=== PATIENT | male | born 1970 | race Caucasian/White ===

== ENCOUNTER 2017-12-26 16:04 | Inpatient (IN) | payer MEDICAID, OTHER ==
[~2017-12-26] VITALS: Ht 200.7 cm; Wt 79.1 kg
[2017-12-26] MEDS ORDERED: SODIUM CHLORIDE 0.9% 1,000 ML IV ONE ×2 (16:12→20:09)
[2017-12-26] MEDS ORDERED: PLEASE ENTER HEIGHT AND WEIGHT MC SCH (16:30)
[2017-12-26] MEDS ORDERED: PLEASE ENTER ALLERGIES MC SCH (16:30)
[2017-12-26 16:37] LABS: MEAN CORPUSCULAR HEMOGLOBIN 32.5 pg (27.5-34.5); MEAN CORPUSCULAR VOLUME 95.4 fL (81-97); MEAN PLATELET VOLUME 6.2 fL (7.4-10.4); PLATELET COUNT 580 x10^3/uL (130-400); RED BLOOD COUNT 3.73 x10^6/uL (4.38-5.82); RED CELL DISTRIBUTION WIDTH 19.3 % (9.4-14.8)
[2017-12-26 16:46] LABS: ALANINE AMINOTRANSFERASE 91 U/L (12-78); ALBUMIN 2.2 g/dL (3.4-5.0); ANION GAP 15 mmol/L (5-15); CALCIUM 7.2 mg/dL (8.5-10.1); CHLORIDE 101 mmol/L (98-107); SALICYLATE LEVEL 4.7 mg/dL (2.8-20.0)
[2017-12-26 16:49] LABS: ALKALINE PHOSPHATASE 90 U/L (45-117); BILIRUBIN,TOTAL 0.2 mg/dL (0.2-1.0); TOTAL PROTEIN 6.7 g/dL (6.4-8.2)
[2017-12-26 16:51] LABS: ACETAMINOPHEN < 2 mcg/mL (10-30)
[2017-12-26] MEDS ORDERED: SODIUM CHLORIDE 0.9% 1,000ML IVBOLUS ONE (17:00)
[2017-12-26 17:23] LABS: MD YES
[2017-12-26 17:26] LABS: BAND#(MANUAL) 3.19 x10^3/uL; BANDS%(MANUAL) 24 % (0-7); LYMPH#(MANUAL) 1.46 x10^3/uL (1-3.4); LYMPHS% (MANUAL) 11 % (22-44); MONOS% (MANUAL) 9 % (2-9); SEG#(MANUAL) 7.45 x10^3/uL (1.8-6.8); SEGS% (MANUAL) 56 % (42-75)
[2017-12-26 17:27] LABS: ANISOCYTOSIS 1+; POLYCHROMASIA 1+
[2017-12-26 17:28] LABS: <PLATELET ESTIMATE> INCREASED; <PLT MORPHOLOGY> NORMAL PLT MORPH; TOXIC GRAN 1+
[2017-12-26] MEDS ORDERED: SODIUM CHLORIDE FLUSH 10ML SYR IVF ONE (18:00)
[2017-12-26] MEDS ORDERED: HALOPERIDOL 5 MG/ML IVPush PRN (20:30)
[2017-12-26] MEDS ORDERED: ONDANSETRON 2MG/ML, 2ML IVPush PRN (20:30)
[2017-12-26] MEDS ORDERED: PROMETHAZINE 12.5 MG SUPP PR PRN (20:30)
[2017-12-26] MEDS ORDERED: SODIUM CHLORIDE FLUSH 10ML SYR IVF PRN (20:30)
[2017-12-26] MEDS ORDERED: LORazepam 2 MG/ML, 1ML IV PRN ×4 (20:30)
[2017-12-26] MEDS ORDERED: DIPHENHYDRAMINE 50 MG/ML, 1ML IV PRN (20:30)
[2017-12-26] MEDS ORDERED: OMNIPAQUE 350 MG/ML, 100ML BOTTLE ONE (20:59)
[2017-12-26] MEDS ORDERED: NICOTINE 21 MG/24 HR PATCH.TD24 ONE (21:04)
[2017-12-26] MEDS ORDERED: ENOXAPARIN 40 MG/0.4 ML ONE (21:04)
[2017-12-26] MEDS: ENOXAPARIN 40 MG/0.4 ML SQ SCH (21:08)
[2017-12-26] MEDS: NICOTINE 21 MG/24 HR PATCH.TD24 TD SCH (21:08)
[2017-12-26] MEDS: LORazepam 2 MG/ML, 1ML IV PRN ×2 (22:13→23:36)
[2017-12-26 22:28] VITALS: BP 114/74
[2017-12-26] MEDS: D5%-0.9% NACL 1,000 ML IV SCH (23:18)
[2017-12-26] MEDS: POTASSIUM CHLORIDE 20 MEQ, MAGNESIUM SULFATE 2 GM, THIAMINE 100 MG, MVI ADULT 10 ML, FO... IV SCH (23:18)
[2017-12-27] MEDS: LORazepam 2 MG/ML, 1ML IV PRN ×6 (01:05→06:28)
[2017-12-27] MEDS: POTASSIUM CHLORIDE 20 MEQ, MAGNESIUM SULFATE 2 GM, THIAMINE 100 MG, MVI ADULT 10 ML, FO... IV SCH ×4 (01:08→15:49)
[2017-12-27 01:59] VITALS: BP 98/63
[2017-12-27] MEDS: D5%-0.9% NACL 1,000 ML IV SCH (04:09)
[2017-12-27 05:45] LABS: MEAN CORPUSCULAR HEMOGLOBIN 32.6 pg (27.5-34.5); MEAN CORPUSCULAR HGB CONC 33.7 g/dL (33.2-36.2); MEAN CORPUSCULAR VOLUME 96.6 fL (81-97); MEAN PLATELET VOLUME 6.4 fL (7.4-10.4); PLATELET COUNT 477 x10^3/uL (130-400); RED BLOOD COUNT 2.74 x10^6/uL (4.38-5.82); RED CELL DISTRIBUTION WIDTH 19.6 % (9.4-14.8)
[2017-12-27 05:49] LABS: CHLORIDE 104 mmol/L (98-107)
[2017-12-27 06:04] LABS: ALANINE AMINOTRANSFERASE 69 U/L (12-78); ALBUMIN 1.8 g/dL (3.4-5.0); ALKALINE PHOSPHATASE 68 U/L (45-117); ANION GAP 12 mmol/L (5-15); BILIRUBIN,TOTAL 0.3 mg/dL (0.2-1.0); CALCIUM 6.8 mg/dL (8.5-10.1); CREATININE 0.52 mg/dL (0.7-1.3); TOTAL PROTEIN 5.3 g/dL (6.4-8.2)
[2017-12-27 06:31] LABS: MD YES
[2017-12-27 06:32] LABS: BAND#(MANUAL) 0.83 x10^3/uL; BANDS%(MANUAL) 9 % (0-7); LYMPH#(MANUAL) 1.75 x10^3/uL (1-3.4); LYMPHS% (MANUAL) 19 % (22-44); MONOS#(MANUAL) 0.46 x10^3/uL (0.3-2.7); MONOS% (MANUAL) 5 % (2-9); SEG#(MANUAL) 6.16 x10^3/uL (1.8-6.8); SEGS% (MANUAL) 67 % (42-75)
[2017-12-27 06:33] LABS: <PLATELET ESTIMATE> ADEQUATE; <PLT MORPHOLOGY> NORMAL PLT MORPH; ANISOCYTOSIS 1+; POLYCHROMASIA 1+; TOXIC GRAN 1+
[2017-12-27] MEDS ORDERED: SODIUM PHOSPHATE 20 MMOL in SODIUM CHLORIDE 0.9% 500 ML IV ONE (08:00)
[2017-12-27 08:02] LABS: HCT (SEDRATE) 26.5 % (39.2-51.8)
[2017-12-27 08:10] LABS: % IRON SATURATION 14 % (20-55); IRON LEVEL 24 mcg/dL (65-175); TOTAL IRON BINDING CAPACITY 170 mcg/dL (250-450)
[2017-12-27 08:36] LABS: FOLATE LEVEL > 20.0 ng/mL (3.1-17.5)
[2017-12-27] MEDS: CHLORDIAZEPOXIDE 25 MG CAPSULE PO SCH ×4 (09:09→20:19)
[2017-12-27] MEDS: SODIUM CHLORIDE 0.9% 1,000 ML IV SCH (09:10)
[2017-12-27] MEDS: DIAZEPAM 5 MG/ML, 2ML IV SCH ×4 (09:12→20:17)
[2017-12-27 09:31] LABS: CRYPTOSPORIDIUM ANTIGEN Negative (Negative)
[2017-12-27 10:02] LABS: MICROSCOPIC INDICATED
[2017-12-27 10:05] LABS: AMPHETAMINE SCREEN, URINE Negative (Negative); BARBITURATE SCREEN, URINE Negative (Negative); BENZODIAZEPINE SCREEN, URINE Negative (Negative); CANNABINOID SCREEN, URINE Negative (Negative); COCAINE SCREEN, URINE Negative (Negative); METHADONE SCREEN, URINE Negative (Negative); OPIATE SCREEN, URINE Negative (Negative)
[2017-12-27 10:12] LABS: CULTURE INDICATED? NO
[2017-12-27 10:22] LABS: CLOSTRIDIUM DIFFICILE ANTIGEN POSITIVE; CLOSTRIDIUM DIFFICILE TOXIN NEGATIVE (Negative)
[2017-12-27] MEDS: METRONIDAZOLE PMX 500MG/100ML 100 ML IV SCH ×3 (10:49→23:24)
[2017-12-27] MEDS: CEFTRIAXONE PMX 1GM/50ML 50 ML IV SCH (10:50)
[2017-12-27] MEDS: ACETAMINOPHEN 325 MG TABLET PO PRN ×2 (11:36→15:44)
[2017-12-27] MEDS: VANCOMYCIN 50 MG/ML ORAL SUSP PO SCH ×2 (12:49→18:13)
[2017-12-27 16:45] LABS: CULTURE INDICATED? YES; MICROSCOPIC INDICATED
[2017-12-27] MEDS: ENOXAPARIN 40 MG/0.4 ML SQ SCH (20:17)
[2017-12-27] MEDS: NICOTINE 21 MG/24 HR PATCH.TD24 TD SCH (20:18)
[2017-12-28] MEDS: DIAZEPAM 5 MG/ML, 2ML IV SCH ×5 (00:57→16:46)
[2017-12-28] MEDS: VANCOMYCIN 50 MG/ML ORAL SUSP PO SCH ×4 (00:57→20:29)
[2017-12-28] MEDS: SODIUM CHLORIDE 0.9% 1,000 ML IV SCH ×3 (01:00→20:30)
[2017-12-28] MEDS: CHLORDIAZEPOXIDE 25 MG CAPSULE PO SCH ×4 (04:56→20:30)
[2017-12-28] MEDS: METRONIDAZOLE PMX 500MG/100ML 100 ML IV SCH ×4 (04:56→23:44)
[2017-12-28 08:31] LABS: MEAN CORPUSCULAR HEMOGLOBIN 32.2 pg (27.5-34.5); MEAN CORPUSCULAR HGB CONC 33.4 g/dL (33.2-36.2); MEAN CORPUSCULAR VOLUME 96.4 fL (81-97); MEAN PLATELET VOLUME 6.8 fL (7.4-10.4); PLATELET COUNT 394 x10^3/uL (130-400); RED BLOOD COUNT 3.03 x10^6/uL (4.38-5.82); RED CELL DISTRIBUTION WIDTH 19.8 % (9.4-14.8)
[2017-12-28 08:47] LABS: ALANINE AMINOTRANSFERASE 61 U/L (12-78); ALBUMIN 1.9 g/dL (3.4-5.0); ANION GAP 10 mmol/L (5-15); CALCIUM 7.6 mg/dL (8.5-10.1); CHLORIDE 107 mmol/L (98-107); CREATININE 0.58 mg/dL (0.7-1.3)
[2017-12-28 08:50] LABS: ALKALINE PHOSPHATASE 73 U/L (45-117); BILIRUBIN,TOTAL 0.3 mg/dL (0.2-1.0); MD YES
[2017-12-28 08:51] LABS: BAND#(MANUAL) 0.38 x10^3/uL; BANDS%(MANUAL) 3 % (0-7); EOS#(MANUAL) 0.13 x10^3/uL (0.0-0.4); EOS% (MANUAL) 1 % (1-7); LYMPHS% (MANUAL) 12 % (22-44); SEGS% (MANUAL) 76 % (42-75)
[2017-12-28 08:52] LABS: ANISOCYTOSIS 1+; MONOS% (MANUAL) 8 % (2-9); POLYCHROMASIA 1+
[2017-12-28 08:53] LABS: <PLATELET ESTIMATE> ADEQUATE; <PLT MORPHOLOGY> NORMAL PLT MORPH
[2017-12-28 08:54] LABS: TOXIC GRAN 1+
[2017-12-28] MEDS: POTASSIUM CHLORIDE 20 MEQ, MAGNESIUM SULFATE 2 GM, THIAMINE 100 MG, MVI ADULT 10 ML, FO... IV SCH (10:57)
[2017-12-28] MEDS: CEFTRIAXONE PMX 1GM/50ML 50 ML IV SCH (11:45)
[2017-12-28] MEDS ORDERED: METOPROLOL 1 MG/ML, 5ML IVPush ONE (12:30)
[2017-12-28] MEDS ORDERED: METOPROLOL 1 MG/ML, 5ML ONE (12:31)
[2017-12-28] MEDS ORDERED: DIAZEPAM 5 MG/ML, 10ML VIAL IV SCH (19:30)
[2017-12-28] MEDS: DIAZEPAM 5 MG/ML, 10ML VIAL IV SCH (20:28)
[2017-12-28] MEDS: NICOTINE 21 MG/24 HR PATCH.TD24 TD SCH (20:29)
[2017-12-28] MEDS: ENOXAPARIN 40 MG/0.4 ML SQ SCH (20:29)
[2017-12-29] MEDS: DIAZEPAM 5 MG/ML, 10ML VIAL IV SCH ×2 (00:21→04:41)
[2017-12-29] MEDS: VANCOMYCIN 50 MG/ML ORAL SUSP PO SCH ×4 (02:08→20:07)
[2017-12-29 04:20] LABS: BASOPHILS # (AUTO) 0.06 x10^3/uL (0-0.1); BASOPHILS % (AUTO) 1 % (0-1); EOSINOPHILS # (AUTO) 0.08 x10^3/uL (0-0.4); EOSINOPHILS % (AUTO) 1 % (1-7); LYMPHOCYTES # (AUTO) 1.27 x10^3/uL (1-3.4); LYMPHOCYTES % (AUTO) 14 % (22-44); MD NO; MEAN CORPUSCULAR HEMOGLOBIN 32.9 pg (27.5-34.5); MEAN CORPUSCULAR HGB CONC 33.7 g/dL (33.2-36.2); MEAN CORPUSCULAR VOLUME 97.8 fL (81-97); MEAN PLATELET VOLUME 6.7 fL (7.4-10.4); MONOCYTES # (AUTO) 1.01 x10^3/uL (0.2-0.8); MONOCYTES % (AUTO) 12 % (2-9); NEUTROPHILS % (AUTO) 73 % (42-75); PLATELET COUNT 340 x10^3/uL (130-400); RED BLOOD COUNT 2.79 x10^6/uL (4.38-5.82); RED CELL DISTRIBUTION WIDTH 19.6 % (9.4-14.8)
[2017-12-29 04:30] LABS: ALANINE AMINOTRANSFERASE 48 U/L (12-78); ALBUMIN 1.6 g/dL (3.4-5.0); ANION GAP 7 mmol/L (5-15); CALCIUM 7.2 mg/dL (8.5-10.1); CHLORIDE 110 mmol/L (98-107); CREATININE 0.47 mg/dL (0.7-1.3)
[2017-12-29 04:33] LABS: ALKALINE PHOSPHATASE 60 U/L (45-117); BILIRUBIN,TOTAL 0.3 mg/dL (0.2-1.0); TOTAL PROTEIN 5.1 g/dL (6.4-8.2)
[2017-12-29] MEDS: METRONIDAZOLE PMX 500MG/100ML 100 ML IV SCH (04:41)
[2017-12-29] MEDS: CHLORDIAZEPOXIDE 25 MG CAPSULE PO SCH ×4 (06:14→20:07)
[2017-12-29] MEDS: SODIUM CHLORIDE 0.9% 1,000 ML IV SCH (08:25)
[2017-12-29] MEDS: POTASSIUM CHLORIDE 20 MEQ, MAGNESIUM SULFATE 2 GM, THIAMINE 100 MG, MVI ADULT 10 ML, FO... IV SCH (09:36)
[2017-12-29] MEDS: DIAZEPAM 5 MG/ML, 10ML VIAL IV PRN ×4 (09:36→22:12)
[2017-12-29] MEDS: CEFTRIAXONE PMX 1GM/50ML 50 ML IV SCH (10:48)
[2017-12-29] MEDS ORDERED: CALCIUM CARBONATE 500 MG TAB.CHEW ONE (14:26)
[2017-12-29] MEDS: CALCIUM CARBONATE 500 MG TAB.CHEW PO PRN ×3 (14:28→22:11)
[2017-12-29 17:18] VITALS: BP 93/68
[2017-12-29 18:23] VITALS: BP 103/70
[2017-12-29] MEDS: ENOXAPARIN 40 MG/0.4 ML SQ SCH (20:07)
[2017-12-29] MEDS: NICOTINE 21 MG/24 HR PATCH.TD24 TD SCH (20:08)
[2017-12-30 01:26] VITALS: BP 113/75
[2017-12-30] MEDS: VANCOMYCIN 50 MG/ML ORAL SUSP PO SCH ×4 (02:32→22:26)
[2017-12-30] MEDS: DIAZEPAM 5 MG/ML, 10ML VIAL IV PRN ×4 (02:33→22:36)
[2017-12-30 05:19] LABS: CHLORIDE 111 mmol/L (98-107)
[2017-12-30 05:21] LABS: BASOPHILS # (AUTO) 0.05 x10^3/uL (0-0.1); BASOPHILS % (AUTO) 1 % (0-1); EOSINOPHILS # (AUTO) 0.12 x10^3/uL (0-0.4); EOSINOPHILS % (AUTO) 2 % (1-7); LYMPHOCYTES # (AUTO) 1.37 x10^3/uL (1-3.4); LYMPHOCYTES % (AUTO) 26 % (22-44); MD NO; MEAN CORPUSCULAR HEMOGLOBIN 32.2 pg (27.5-34.5); MEAN CORPUSCULAR HGB CONC 33.2 g/dL (33.2-36.2); MEAN CORPUSCULAR VOLUME 97.1 fL (81-97); MONOCYTES # (AUTO) 0.57 x10^3/uL (0.2-0.8); MONOCYTES % (AUTO) 11 % (2-9); NEUTROPHILS # (AUTO) 3.12 x10^3/uL (1.8-6.8); NEUTROPHILS % (AUTO) 60 % (42-75); PLATELET COUNT 351 x10^3/uL (130-400); RED BLOOD COUNT 2.65 x10^6/uL (4.38-5.82); RED CELL DISTRIBUTION WIDTH 19.1 % (9.4-14.8)
[2017-12-30 05:28] LABS: ALANINE AMINOTRANSFERASE 43 U/L (12-78); ALBUMIN 1.6 g/dL (3.4-5.0); ALKALINE PHOSPHATASE 50 U/L (45-117); ANION GAP 7 mmol/L (5-15); BILIRUBIN,TOTAL 0.4 mg/dL (0.2-1.0); CALCIUM 7.3 mg/dL (8.5-10.1); CREATININE 0.46 mg/dL (0.7-1.3); TOTAL PROTEIN 5.2 g/dL (6.4-8.2)
[2017-12-30 08:34] VITALS: BP 116/79
[2017-12-30] MEDS: CHLORDIAZEPOXIDE 25 MG CAPSULE PO SCH ×3 (08:41→20:14)
[2017-12-30] MEDS: POTASSIUM CHLORIDE 20 MEQ, MAGNESIUM SULFATE 2 GM, THIAMINE 200 MG, MVI ADULT 10 ML, FO... IV SCH (08:42)
[2017-12-30] MEDS: CEFTRIAXONE PMX 1GM/50ML 50 ML IV SCH (11:05)
[2017-12-30 14:48] VITALS: BP 102/67
[2017-12-30] MEDS: CALCIUM CARBONATE 500 MG TAB.CHEW PO PRN ×2 (17:28→22:26)
[2017-12-30 18:18] VITALS: BP 107/69
[2017-12-30] MEDS: NICOTINE 21 MG/24 HR PATCH.TD24 TD SCH (20:14)
[2017-12-30] MEDS: FAMOTIDINE 20 MG TABLET PO SCH (20:14)
[2017-12-30] MEDS: ENOXAPARIN 40 MG/0.4 ML SQ SCH (20:14)
[2017-12-31 01:24] VITALS: BP 106/65
[2017-12-31] MEDS: VANCOMYCIN 50 MG/ML ORAL SUSP PO SCH ×4 (05:28→23:10)
[2017-12-31] MEDS: DIAZEPAM 5 MG/ML, 10ML VIAL IV PRN ×4 (05:56→23:10)
[2017-12-31 06:57] VITALS: BP 122/80
[2017-12-31] MEDS: CHLORDIAZEPOXIDE 25 MG CAPSULE PO SCH ×3 (07:56→21:31)
[2017-12-31] MEDS: FAMOTIDINE 20 MG TABLET PO SCH ×2 (07:56→21:31)
[2017-12-31] MEDS: POTASSIUM CHLORIDE 20 MEQ, MAGNESIUM SULFATE 2 GM, THIAMINE 200 MG, MVI ADULT 10 ML, FO... IV SCH (07:56)
[2017-12-31 12:05] VITALS: BP 96/55
[2017-12-31] MEDS: CALCIUM CARBONATE 500 MG TAB.CHEW PO PRN ×3 (13:51→23:10)
[2017-12-31 19:19] VITALS: BP 115/74
[2017-12-31] MEDS: NICOTINE 21 MG/24 HR PATCH.TD24 TD SCH (21:30)
[2017-12-31] MEDS: ENOXAPARIN 40 MG/0.4 ML SQ SCH (21:31)
[2017-12-31] MEDS ORDERED: DIAZEPAM 5 MG TABLET ONE (22:53)
[2018-01-01 01:20] VITALS: BP 144/78
[2018-01-01 05:32] LABS: BASOPHILS # (AUTO) 0.11 x10^3/uL (0-0.1); BASOPHILS % (AUTO) 2 % (0-1); EOSINOPHILS # (AUTO) 0.21 x10^3/uL (0-0.4); EOSINOPHILS % (AUTO) 3 % (1-7); LYMPHOCYTES % (AUTO) 19 % (22-44); MD NO; MEAN CORPUSCULAR HEMOGLOBIN 33.4 pg (27.5-34.5); MEAN CORPUSCULAR HGB CONC 33.8 g/dL (33.2-36.2); MEAN PLATELET VOLUME 6.8 fL (7.4-10.4); MONOCYTES # (AUTO) 0.91 x10^3/uL (0.2-0.8); MONOCYTES % (AUTO) 12 % (2-9); NEUTROPHILS % (AUTO) 65 % (42-75); PLATELET COUNT 456 x10^3/uL (130-400); RED BLOOD COUNT 2.76 x10^6/uL (4.38-5.82); RED CELL DISTRIBUTION WIDTH 20.4 % (9.4-14.8)
[2018-01-01 05:36] LABS: ALANINE AMINOTRANSFERASE 50 U/L (12-78); ALBUMIN 1.9 g/dL (3.4-5.0); ANION GAP 7 mmol/L (5-15); CALCIUM 7.7 mg/dL (8.5-10.1); CHLORIDE 110 mmol/L (98-107)
[2018-01-01] MEDS: VANCOMYCIN 50 MG/ML ORAL SUSP PO SCH ×4 (05:37→21:58)
[2018-01-01 05:39] LABS: ALKALINE PHOSPHATASE 54 U/L (45-117); BILIRUBIN,TOTAL 0.4 mg/dL (0.2-1.0); CREATININE 0.58 mg/dL (0.7-1.3)
[2018-01-01 07:06] VITALS: BP 126/80
[2018-01-01] MEDS: CHLORDIAZEPOXIDE 25 MG CAPSULE PO SCH ×2 (08:18→20:10)
[2018-01-01] MEDS: FAMOTIDINE 20 MG TABLET PO SCH ×2 (08:18→20:09)
[2018-01-01 12:20] VITALS: BP 106/69
[2018-01-01] MEDS: THIAMINE 100MG TABLET PO SCH (12:30)
[2018-01-01] MEDS: SERTRALINE 50MG TABLET PO SCH (12:55)
[2018-01-01] MEDS: FOLIC ACID 1 MG TABLET PO SCH (12:55)
[2018-01-01] MEDS: LORazepam 1MG TABLET PO PRN ×2 (16:13→21:11)
[2018-01-01 20:00] VITALS: BP 127/71
[2018-01-01] MEDS: CALCIUM CARBONATE 500 MG TAB.CHEW PO PRN (20:09)
[2018-01-01] MEDS: NICOTINE 21 MG/24 HR PATCH.TD24 TD SCH (21:13)
[2018-01-01] MEDS: ENOXAPARIN 40 MG/0.4 ML SQ SCH (21:13)
[2018-01-02 04:45] VITALS: BP 137/87
[2018-01-02] MEDS: VANCOMYCIN 50 MG/ML ORAL SUSP PO SCH ×4 (04:45→22:54)
[2018-01-02] MEDS: ACETAMINOPHEN 325 MG TABLET PO PRN (04:59)
[2018-01-02 07:30] VITALS: BP 132/81
[2018-01-02] MEDS: THIAMINE 100MG TABLET PO SCH (08:26)
[2018-01-02] MEDS: SERTRALINE 50MG TABLET PO SCH (08:26)
[2018-01-02] MEDS: CHLORDIAZEPOXIDE 25 MG CAPSULE PO SCH (08:26)
[2018-01-02] MEDS: FOLIC ACID 1 MG TABLET PO SCH (08:26)
[2018-01-02] MEDS: FAMOTIDINE 20 MG TABLET PO SCH ×2 (08:26→21:12)
[2018-01-02 13:11] VITALS: BP 128/80
[2018-01-02] MEDS: LORazepam 1MG TABLET PO PRN (15:03)
[2018-01-02 20:00] VITALS: BP 102/59
[2018-01-02] MEDS: NICOTINE 21 MG/24 HR PATCH.TD24 TD SCH (21:12)
[2018-01-02] MEDS: ENOXAPARIN 40 MG/0.4 ML SQ SCH (21:12)
[2018-01-03] MEDS: LORazepam 1MG TABLET PO PRN ×3 (00:15→23:37)
[2018-01-03 02:00] VITALS: BP 115/73
[2018-01-03] MEDS: VANCOMYCIN 50 MG/ML ORAL SUSP PO SCH ×4 (04:58→23:37)
[2018-01-03 05:20] LABS: BASOPHILS # (AUTO) 0.08 x10^3/uL (0-0.1); BASOPHILS % (AUTO) 1 % (0-1); EOSINOPHILS % (AUTO) 3 % (1-7); LYMPHOCYTES # (AUTO) 1.76 x10^3/uL (1-3.4); LYMPHOCYTES % (AUTO) 28 % (22-44); MD NO; MEAN CORPUSCULAR HEMOGLOBIN 32.6 pg (27.5-34.5); MEAN CORPUSCULAR HGB CONC 33.4 g/dL (33.2-36.2); MEAN CORPUSCULAR VOLUME 97.6 fL (81-97); MEAN PLATELET VOLUME 6.3 fL (7.4-10.4); MONOCYTES # (AUTO) 1.19 x10^3/uL (0.2-0.8); MONOCYTES % (AUTO) 19 % (2-9); NEUTROPHILS # (AUTO) 3.16 x10^3/uL (1.8-6.8); NEUTROPHILS % (AUTO) 49 % (42-75); PLATELET COUNT 546 x10^3/uL (130-400); RED BLOOD COUNT 3.03 x10^6/uL (4.38-5.82); RED CELL DISTRIBUTION WIDTH 19.3 % (9.4-14.8)
[2018-01-03 06:15] LABS: ALANINE AMINOTRANSFERASE 56 U/L (12-78); ALBUMIN 2.2 g/dL (3.4-5.0); ANION GAP 8 mmol/L (5-15); CALCIUM 8.1 mg/dL (8.5-10.1); CHLORIDE 108 mmol/L (98-107); CREATININE 0.72 mg/dL (0.7-1.3)
[2018-01-03 06:17] LABS: ALKALINE PHOSPHATASE 56 U/L (45-117); BILIRUBIN,TOTAL 0.3 mg/dL (0.2-1.0); TOTAL PROTEIN 6.9 g/dL (6.4-8.2)
[2018-01-03 07:00] VITALS: BP 122/79
[2018-01-03] MEDS: FAMOTIDINE 20 MG TABLET PO SCH ×2 (08:19→21:18)
[2018-01-03] MEDS: SERTRALINE 50MG TABLET PO SCH (08:19)
[2018-01-03] MEDS: FOLIC ACID 1 MG TABLET PO SCH (08:19)
[2018-01-03] MEDS: CHLORDIAZEPOXIDE 25 MG CAPSULE PO SCH (08:19)
[2018-01-03] MEDS: THIAMINE 100MG TABLET PO SCH (08:19)
[2018-01-03 12:30] VITALS: BP 115/73
[2018-01-03 20:50] VITALS: BP 113/69
[2018-01-03] MEDS: ENOXAPARIN 40 MG/0.4 ML SQ SCH (21:18)
[2018-01-03] MEDS: NICOTINE 21 MG/24 HR PATCH.TD24 TD SCH (21:18)
[2018-01-04 02:07] VITALS: BP 116/72
[2018-01-04] MEDS: VANCOMYCIN 50 MG/ML ORAL SUSP PO SCH ×3 (05:07→16:40)
[2018-01-04 07:27] VITALS: BP 113/72
[2018-01-04] MEDS: SERTRALINE 50MG TABLET PO SCH (09:17)
[2018-01-04] MEDS: THIAMINE 100MG TABLET PO SCH (09:17)
[2018-01-04] MEDS: FAMOTIDINE 20 MG TABLET PO SCH (09:17)
[2018-01-04] MEDS: FOLIC ACID 1 MG TABLET PO SCH (09:17)
[2018-01-04] MEDS: CHLORDIAZEPOXIDE 25 MG CAPSULE PO SCH (09:17)
[2018-01-04] MEDS: ACETAMINOPHEN 325 MG TABLET PO PRN (09:21)
[2018-01-04 13:32] VITALS: BP 120/76
[2018-01-04] MEDS ORDERED: SERT50TA5 PO (14:10)
[2018-01-04] MEDS ORDERED: VANC1VIA3 PO (14:10)
[2018-01-04] MEDS: LORazepam 1MG TABLET PO PRN (15:20)
== END 2018-01-04 17:08 | disposition home or self-care (01) | DRG 871 ==
LOC: ED 18:41 → SUATTDRO 20:02 → EDIP 20:24 → 4EST 22:00 → CCU 12-27 05:19 → 4WST 12-29 17:18
PROVIDERS: ADMIT Hospitalist; ATTEND Hospitalist
PROC: 0T9B70Z Drainage of Bladder with Drainage Device, Via Natural or Artificial Opening (ICD-10-PCS; principal; 2017-12-27)
DX: A41.4 Sepsis due to anaerobes (principal); E43 Unspecified severe protein-calorie malnutrition; G93.41 Metabolic encephalopathy; F10.231 Alcohol dependence with withdrawal delirium; A04.72 Enterocolitis due to Clostridium difficile, not specified as recurrent; K70.10 Alcoholic hepatitis without ascites; R45.851 Suicidal ideations; Z68.1 Body mass index [BMI] 19.9 or less, adult; D53.9 Nutritional anemia, unspecified; D63.8 Anemia in other chronic diseases classified elsewhere; F10.220 Alcohol dependence with intoxication, uncomplicated; F17.210 Nicotine dependence, cigarettes, uncomplicated; F32.9 Major depressive disorder, single episode, unspecified; F41.9 Anxiety disorder, unspecified; Z82.3 Family history of stroke; Z81.1 Family history of alcohol abuse and dependence
CPT/HCPCS: 36415; 36600; 74022; 74177; 80053; 80307; 80329; 81001; 82140; 82607; 82728; 82746; 82803; 83540; 83550; 83605; 83690; 83735; 84100; 84134; 84443; 85025; 85651; 87040; 87046; 87081; 87086; 87324; 87328; 87329; 87427; 87493; 93005; 96360; 96361; J0696; J1650; J3360; J3370; J3411; J3475; J3480; J7042; Q9967; G0480; J2060; J7030; J7040

== ENCOUNTER 2019-01-18 12:48 | Inpatient (IN) | payer MEDICAID ==
[~2019-01-18] VITALS: Ht 200.7 cm; Wt 75.8 kg
[~2019-01-18 12:48] MED LIST: SERT50TA28 PO; VANC1VIA3 PO
--- NOTE | 2019-01-18 13:11 | NUR ---
MANAGER CUSTOMER SERVICE: PT TO ROOM FROM LOBBY VIA W/C
--- NOTE | 2019-01-18 13:26 | NUR ---
PT TO ROOM 18 W/ C/O ETOH WITHDRAWAL LAST DRINK THIS AM. PT ALSO STATES SOB AND STATES HE CAN'T WALK MORE THEN 50 FT W/O FEELING WEAK/LIGHTHEADED. PT STATES HE HAS HX COLLAPSED LUNG. C/O CP STARTED 3 DAYS AGO. DENIES HX COPD. PT RESTING ON GURNEY. C/O COUGH. +CIGARETTE USE 10/DAY. MONITORS APPLIED.
[2019-01-18] MEDS ORDERED: ALBUTEROL/IPRATROPIUM 2.5MG/0.5MG, 3 ML NPPB ONE (13:30)
[2019-01-18] MEDS ORDERED: SODIUM CHLORIDE FLUSH 10ML SYR IVF ONE (13:30)
[2019-01-18] MEDS ORDERED: LORazepam 2 MG/ML, 1ML IVPush ONE (13:30)
[2019-01-18] MEDS ORDERED: SODIUM CHLORIDE 0.9% 1,000ML IVBOLUS ONE ×2 (13:30→15:30)
[2019-01-18] MEDS ORDERED: LORazepam 2 MG/ML, 1ML ONE ×2 (13:33→17:56)
[2019-01-18] MEDS ORDERED: ALBUTEROL/IPRATROPIUM 2.5MG/0.5MG, 3 ML ONE (13:49)
--- NOTE | 2019-01-18 13:59 | NUR ---
PT RESTING ON GURNEY. NADN. FONSECA.
[2019-01-18] MEDS ORDERED: AZITHROMYCIN 500 MG in SODIUM CHLORIDE 0.9% 250 ML IV ONE (14:00)
[2019-01-18] MEDS ORDERED: CEFTRIAXONE PMX 1GM/50ML 50 ML IV ONE (14:00)
[2019-01-18] MEDS ORDERED: CEFTRIAXONE PMX 1GM/50ML 50 ML ONE (14:00)
[2019-01-18 14:19] LABS: ALBUMIN 2.9 g/dL (3.4-5.0); ANION GAP 16 mmol/L (5-15); CALCIUM 8.5 mg/dL (8.5-10.1); CHLORIDE 103 mmol/L (98-107)
[2019-01-18 14:24] LABS: BASOPHILS % (AUTO) 0 % (0-1); EOSINOPHILS # (AUTO) 0.01 x10^3/uL (0-0.4); EOSINOPHILS % (AUTO) 0 % (1-7); LYMPHOCYTES # (AUTO) 2.03 x10^3/uL (1-3.4); LYMPHOCYTES % (AUTO) 16 % (22-44); MD NO; MEAN CORPUSCULAR HEMOGLOBIN 32.4 pg (27.5-34.5); MEAN CORPUSCULAR HGB CONC 33.4 g/dL (33.2-36.2); MEAN CORPUSCULAR VOLUME 97.2 fL (81-97); MEAN PLATELET VOLUME 6.9 fL (7.4-10.4); MONOCYTES # (AUTO) 1.08 x10^3/uL (0.2-0.8); MONOCYTES % (AUTO) 9 % (2-9); NEUTROPHILS # (AUTO) 9.27 x10^3/uL (1.8-6.8); NEUTROPHILS % (AUTO) 75 % (42-75); PLATELET COUNT 417 x10^3/uL (130-400); RED BLOOD COUNT 3.74 x10^6/uL (4.38-5.82)
--- NOTE | 2019-01-18 15:19 | NUR ---
TASK RN: Patient resting in [facility], call lau within reach. Continuous blood pressure, SPO2 and cardiac monitoring in place. IV antibiotics infusing.
--- NOTE | 2019-01-18 15:37 | NUR ---
PT RESTING ON . MEDICATED PER NOV. WARM BLANKET PROVIDED.
[2019-01-18] MEDS ORDERED: VANCOMYCIN PER PHARMACY MC PRN (16:30)
[2019-01-18] MEDS ORDERED: LABETALOL 5 MG/ML SYRINGE IVPush PRN (16:30)
[2019-01-18] MEDS ORDERED: ONDANSETRON 2MG/ML, 2ML IVPush PRN (16:30)
[2019-01-18] MEDS ORDERED: LORazepam 2 MG/ML, 1ML IV PRN ×3 (17:00)
[2019-01-18] MEDS ORDERED: ALBUTEROL/IPRATROPIUM 2.5MG/0.5MG, 3 ML NPPB PRN (17:00)
[2019-01-18] MEDS ORDERED: LORazepam 1MG TABLET PO PRN (17:00)
--- NOTE | 2019-01-18 17:14 | NUR ---
PT WITH [facility]. DENIED BY FLORA AT [facility] AND TABITHA AT [facility]
--- NOTE | 2019-01-18 17:34 | NUR ---
YELLOW SLIP SENT TO PHARMACY FOR MEDICATIONS PER NOV.
--- NOTE | 2019-01-18 17:47 | NUR ---
REPORT GIVEN TO LILIA THAKUR RN. ALL QUESTIONS ANSWERED. AWAITING PT TRANSPORT.
[2019-01-18] MEDS ORDERED: HEPARIN 5,000 UNITS/ML, 1ML ONE (17:50)
[2019-01-18] MEDS ORDERED: NICOTINE 7 MG/24 HR PATCH.TD24 ONE (17:50)
[2019-01-18] MEDS: NICOTINE 7 MG/24 HR PATCH.TD24 TD SCH (17:55)
[2019-01-18] MEDS: HEPARIN 5,000 UNITS/ML, 1ML SQ SCH (17:55)
[2019-01-18] MEDS: LORazepam 2 MG/ML, 1ML IV PRN ×2 (17:58→20:29)
[2019-01-18] MEDS ORDERED: THIAMINE 200 MG, MVI ADULT 10 ML, FOLIC ACID 1 MG in D5%-0.9% NACL 1,000 ML IV SCH (18:00)
[2019-01-18 18:35] VITALS: BP 110/52
[2019-01-18] MEDS: PIPERACILLIN/TAZO/PMX 4.5GM 100 ML IV SCH (18:43)
[2019-01-18] MEDS ORDERED: PHARMACOKINETIC CONSULTATION MC ONE (19:00)
[2019-01-18] MEDS ORDERED: PHARMACOKINETIC MONITORING MC PRN (19:00)
[2019-01-18] MEDS: VANCOMYCIN 1,500 MG in SODIUM CHLORIDE 0.9% 250 ML IV SCH (20:28)
[2019-01-18] MEDS: DOXYCYCLINE 100MG CAP PO SCH (20:29)
[2019-01-18] MEDS: VANCOMYCIN 50 MG/ML ORAL SUSP PO SCH (22:32)
[2019-01-18] MEDS: ACETAMINOPHEN 325 MG TABLET PO PRN (22:39)
[2019-01-19] MEDS: CHLORDIAZEPOXIDE 25 MG CAPSULE PO PRN ×2 (00:08→08:13)
[2019-01-19] MEDS: PIPERACILLIN/TAZO/PMX 4.5GM 100 ML IV SCH ×5 (00:36→23:44)
[2019-01-19 00:39] LABS: AMPHETAMINE SCREEN, URINE Negative (Negative); BARBITURATE SCREEN, URINE Negative (Negative); BENZODIAZEPINE SCREEN, URINE Negative (Negative); CANNABINOID SCREEN, URINE Positive (Negative); COCAINE SCREEN, URINE Negative (Negative); METHADONE SCREEN, URINE Negative (Negative); OPIATE SCREEN, URINE Negative (Negative)
[2019-01-19 01:10] LABS: RAPID INFLUENZA A Negative (Negative); RAPID INFLUENZA B Negative (Negative)
[2019-01-19] MEDS: HEPARIN 5,000 UNITS/ML, 1ML SQ SCH ×3 (02:24→17:07)
[2019-01-19 02:25] VITALS: BP 124/84
[2019-01-19 05:52] LABS: ALBUMIN 2.3 g/dL (3.4-5.0); ANION GAP 8 mmol/L (5-15); BASOPHILS # (AUTO) 0.03 x10^3/uL (0-0.1); BASOPHILS % (AUTO) 1 % (0-1); CALCIUM 8.2 mg/dL (8.5-10.1); CHLORIDE 110 mmol/L (98-107); EOSINOPHILS # (AUTO) 0.09 x10^3/uL (0-0.4); EOSINOPHILS % (AUTO) 1 % (1-7); LYMPHOCYTES # (AUTO) 1.98 x10^3/uL (1-3.4); LYMPHOCYTES % (AUTO) 29 % (22-44); MD NO; MEAN CORPUSCULAR HEMOGLOBIN 33.5 pg (27.5-34.5); MEAN CORPUSCULAR HGB CONC 34.2 g/dL (33.2-36.2); MEAN CORPUSCULAR VOLUME 98.1 fL (81-97); MEAN PLATELET VOLUME 7.2 fL (7.4-10.4); MONOCYTES # (AUTO) 0.78 x10^3/uL (0.2-0.8); MONOCYTES % (AUTO) 11 % (2-9); NEUTROPHILS # (AUTO) 4.07 x10^3/uL (1.8-6.8); NEUTROPHILS % (AUTO) 59 % (42-75); PLATELET COUNT 345 x10^3/uL (130-400); RED BLOOD COUNT 3.24 x10^6/uL (4.38-5.82); RED CELL DISTRIBUTION WIDTH 19.3 % (9.4-14.8)
[2019-01-19 05:55] LABS: ALANINE AMINOTRANSFERASE 24 U/L (12-78); ALKALINE PHOSPHATASE 67 U/L (45-117); BILIRUBIN,TOTAL 0.4 mg/dL (0.2-1.0); CREATININE 0.66 mg/dL (0.7-1.3); TOTAL PROTEIN 5.9 g/dL (6.4-8.2)
[2019-01-19 07:43] VITALS: BP 137/87
[2019-01-19] MEDS: VANCOMYCIN 50 MG/ML ORAL SUSP PO SCH ×2 (08:12→20:00)
[2019-01-19] MEDS: FOLIC ACID 1 MG TABLET PO SCH (08:13)
[2019-01-19] MEDS: MULTIVITAMIN 1 TABLET PO SCH (08:13)
[2019-01-19] MEDS: ACETAMINOPHEN 325 MG TABLET PO PRN (08:13)
[2019-01-19] MEDS: DOXYCYCLINE 100MG CAP PO SCH ×2 (08:13→20:00)
[2019-01-19] MEDS: VANCOMYCIN 1,500 MG in SODIUM CHLORIDE 0.9% 250 ML IV SCH ×2 (08:13→20:01)
[2019-01-19] MEDS: THIAMINE 100MG TABLET PO SCH (08:13)
[2019-01-19] MEDS ORDERED: CHLORDIAZEPOXIDE 25 MG CAPSULE PO PRN (11:00)
[2019-01-19] MEDS: LORazepam 1MG TABLET PO PRN ×2 (11:43→17:07)
[2019-01-19 13:55] VITALS: BP 118/81
[2019-01-19] MEDS: NICOTINE 7 MG/24 HR PATCH.TD24 TD SCH (17:07)
[2019-01-19] MEDS ORDERED: THIAMINE 200 MG, MVI ADULT 10 ML, FOLIC ACID 1 MG in D5%-0.9% NACL 1,000 ML IV SCH (18:00)
[2019-01-19] MEDS: LORazepam 0.5MG TABLET PO PRN (20:12)
[2019-01-19 20:14] VITALS: BP 120/71
[2019-01-20 01:20] VITALS: BP 117/68
[2019-01-20] MEDS: HEPARIN 5,000 UNITS/ML, 1ML SQ SCH ×3 (03:09→20:18)
[2019-01-20] MEDS: PIPERACILLIN/TAZO/PMX 4.5GM 100 ML IV SCH (06:36)
[2019-01-20] MEDS: LORazepam 1MG TABLET PO PRN ×2 (06:36→16:11)
[2019-01-20 07:09] VITALS: BP 119/76
[2019-01-20] MEDS: FOLIC ACID 1 MG TABLET PO SCH (08:29)
[2019-01-20] MEDS: CEFDINIR 300 MG CAPSULE PO SCH ×2 (08:29→20:16)
[2019-01-20] MEDS: THIAMINE 100MG TABLET PO SCH (08:29)
[2019-01-20] MEDS: VANCOMYCIN 50 MG/ML ORAL SUSP PO SCH ×2 (08:29→20:20)
[2019-01-20] MEDS: MULTIVITAMIN 1 TABLET PO SCH (08:29)
[2019-01-20] MEDS: DOXYCYCLINE 100MG CAP PO SCH ×2 (08:29→20:16)
[2019-01-20 13:01] VITALS: BP 130/83
[2019-01-20] MEDS: NICOTINE 7 MG/24 HR PATCH.TD24 TD SCH (16:07)
[2019-01-20 20:15] VITALS: BP 127/84
[2019-01-20] MEDS: ACETAMINOPHEN 325 MG TABLET PO PRN (20:16)
[2019-01-21 02:00] VITALS: BP 100/64
[2019-01-21] MEDS: HEPARIN 5,000 UNITS/ML, 1ML SQ SCH (04:29)
[2019-01-21] MEDS: ACETAMINOPHEN 325 MG TABLET PO PRN ×2 (04:47→20:44)
[2019-01-21 05:31] LABS: BASOPHILS # (AUTO) 0.03 x10^3/uL (0-0.1); BASOPHILS % (AUTO) 1 % (0-1); EOSINOPHILS # (AUTO) 0.28 x10^3/uL (0-0.4); EOSINOPHILS % (AUTO) 5 % (1-7); LYMPHOCYTES # (AUTO) 2.65 x10^3/uL (1-3.4); LYMPHOCYTES % (AUTO) 43 % (22-44); MD NO; MEAN CORPUSCULAR HEMOGLOBIN 32.7 pg (27.5-34.5); MEAN CORPUSCULAR HGB CONC 33.1 g/dL (33.2-36.2); MEAN CORPUSCULAR VOLUME 98.8 fL (81-97); MEAN PLATELET VOLUME 7.4 fL (7.4-10.4); MONOCYTES # (AUTO) 0.57 x10^3/uL (0.2-0.8); MONOCYTES % (AUTO) 9 % (2-9); NEUTROPHILS # (AUTO) 2.67 x10^3/uL (1.8-6.8); NEUTROPHILS % (AUTO) 43 % (42-75); PLATELET COUNT 384 x10^3/uL (130-400); RED BLOOD COUNT 3.62 x10^6/uL (4.38-5.82); RED CELL DISTRIBUTION WIDTH 18.7 % (9.4-14.8)
[2019-01-21 05:43] LABS: ALBUMIN 2.7 g/dL (3.4-5.0); ANION GAP 8 mmol/L (5-15); CALCIUM 8.7 mg/dL (8.5-10.1); CHLORIDE 108 mmol/L (98-107)
[2019-01-21 05:48] LABS: ALANINE AMINOTRANSFERASE 33 U/L (12-78); ALKALINE PHOSPHATASE 65 U/L (45-117); BILIRUBIN,TOTAL 0.2 mg/dL (0.2-1.0); CREATININE 0.67 mg/dL (0.7-1.3); TOTAL PROTEIN 6.6 g/dL (6.4-8.2)
[2019-01-21 08:12] VITALS: BP 114/80
[2019-01-21] MEDS: FOLIC ACID 1 MG TABLET PO SCH (08:44)
[2019-01-21] MEDS: MULTIVITAMIN 1 TABLET PO SCH (08:44)
[2019-01-21] MEDS: DOXYCYCLINE 100MG CAP PO SCH ×2 (08:44→20:44)
[2019-01-21] MEDS: ENOXAPARIN 40 MG/0.4 ML SQ SCH (08:44)
[2019-01-21] MEDS: CHLORDIAZEPOXIDE 25 MG CAPSULE PO SCH ×2 (08:45→22:49)
[2019-01-21] MEDS: CEFDINIR 300 MG CAPSULE PO SCH ×2 (08:45→20:43)
[2019-01-21] MEDS: VANCOMYCIN 50 MG/ML ORAL SUSP PO SCH ×2 (08:50→20:43)
[2019-01-21] MEDS: THIAMINE 100MG TABLET PO SCH (08:50)
[2019-01-21] MEDS: LORazepam 1MG TABLET PO PRN ×2 (11:41→20:44)
[2019-01-21 14:15] VITALS: BP 118/78
[2019-01-21] MEDS: NICOTINE 7 MG/24 HR PATCH.TD24 TD SCH (16:02)
[2019-01-21] MEDS: LORazepam 0.5MG TABLET PO PRN (16:21)
[2019-01-21 19:47] VITALS: BP 152/62
[2019-01-22 02:07] VITALS: BP 127/63
[2019-01-22 07:01] VITALS: BP 123/68
[2019-01-22] MEDS: CEFDINIR 300 MG CAPSULE PO SCH ×2 (08:11→20:00)
[2019-01-22] MEDS: ENOXAPARIN 40 MG/0.4 ML SQ SCH (08:11)
[2019-01-22] MEDS: CHLORDIAZEPOXIDE 25 MG CAPSULE PO SCH ×2 (08:12→20:01)
[2019-01-22] MEDS: MULTIVITAMIN 1 TABLET PO SCH (08:12)
[2019-01-22] MEDS: THIAMINE 100MG TABLET PO SCH (08:12)
[2019-01-22] MEDS: VANCOMYCIN 50 MG/ML ORAL SUSP PO SCH ×2 (08:12→20:00)
[2019-01-22] MEDS: DOXYCYCLINE 100MG CAP PO SCH ×2 (08:12→20:01)
[2019-01-22] MEDS: FOLIC ACID 1 MG TABLET PO SCH (08:12)
[2019-01-22 12:39] VITALS: BP 106/71
[2019-01-22] MEDS: LORazepam 1MG TABLET PO PRN (12:44)
[2019-01-22] MEDS: NICOTINE 7 MG/24 HR PATCH.TD24 TD SCH (16:29)
[2019-01-22 19:49] VITALS: BP 116/76
[2019-01-22] MEDS: LORazepam 0.5MG TABLET PO PRN (22:50)
[2019-01-23 00:53] VITALS: BP 95/58
[2019-01-23 07:29] VITALS: BP 108/69
[2019-01-23] MEDS: CEFDINIR 300 MG CAPSULE PO SCH (08:39)
[2019-01-23] MEDS: MULTIVITAMIN 1 TABLET PO SCH (08:39)
[2019-01-23] MEDS: THIAMINE 100MG TABLET PO SCH (08:40)
[2019-01-23] MEDS: DOXYCYCLINE 100MG CAP PO SCH (08:40)
[2019-01-23] MEDS: FOLIC ACID 1 MG TABLET PO SCH (08:40)
[2019-01-23] MEDS: VANCOMYCIN 50 MG/ML ORAL SUSP PO SCH (08:41)
[2019-01-23] MEDS: ENOXAPARIN 40 MG/0.4 ML SQ SCH (08:42)
[2019-01-23] MEDS ORDERED: CHLORDIAZEPOXIDE 10 MG CAPSULE PO SCH (10:00)
== END 2019-01-23 11:48 | disposition left against medical advice (07) | DRG 871 ==
LOC: ED 13:52 → EDIP 16:26 → 4WST 18:31
PROVIDERS: ADMIT Internal Medicine; ATTEND Internal Medicine
DX: A41.9 Sepsis, unspecified organism (principal); J18.1 Lobar pneumonia, unspecified organism; R65.21 Severe sepsis with septic shock; E87.2 Acidosis; F10.239 Alcohol dependence with withdrawal, unspecified; G40.89 Other seizures; D53.9 Nutritional anemia, unspecified; E87.6 Hypokalemia; D63.8 Anemia in other chronic diseases classified elsewhere; Z87.891 Personal history of nicotine dependence; Z53.21 Procedure and treatment not carried out due to patient leaving prior to being seen by health care provider; Z86.19 Personal history of other infectious and parasitic diseases; Z71.41 Alcohol abuse counseling and surveillance of alcoholic; Z71.6 Tobacco abuse counseling
CPT/HCPCS: 36415; 84145; 87400; 99291; J3370; J7042; J7620; 71046; 80048; 80053; 80307; 82040; 83605; 83735; 84100; 85025; 87040; 87070; 87205; 93005; 94640; 96374; 96375; G0378; J0456; J0696; J1644; J1650; J2543; J3411; J2060; J7030; J7050

== ENCOUNTER 2019-09-26 13:38 | Emergency (ER) | payer MEDICAID ==
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
--- NOTE | 2019-09-26 14:38 | NUR ---
PT SLEEPING ON JO. AGGIE. PT CURRENTLY MTF.
--- NOTE | 2019-09-26 15:10 | NUR ---
PT SLEEPING ON [place]. AGGIE.
--- NOTE | 2019-09-26 17:25 | NUR ---
PT SLEEPING ON [place]. AGGIE.
[2019-09-26 18:24] VITALS: BP 117/87
--- NOTE | 2019-09-26 18:24 | NUR ---
PT GIVEN DRY CLOTHES TO CHANGE INTO AND BEDDING CHANGED. PT SITTING IN CHAIR IN ROOM. NADN. PT SPEAKING COHERANTLY AND IN FULL SENTANCES.
--- NOTE | 2019-09-26 18:59 | NUR ---
PT ELOPED HOSPITAL PRIOR TO DC. AND CHARGE NURSE AWARE.
== END 2019-09-26 19:01 | disposition left against medical advice (07) ==
LOC: ED 16:17
DX: F10.120 Alcohol abuse with intoxication, uncomplicated (principal); Y90.9 Presence of alcohol in blood, level not specified
CPT/HCPCS: 99283

== ENCOUNTER 2020-01-30 19:21 | Emergency (ER) | payer MEDICAID ==
[~2020-01-30] VITALS: Ht 188 cm; Wt 75.0 kg
[2020-01-30] MEDS ORDERED: THIAMINE 100 MG/ML, 2ML IM ONE (20:00)
[2020-01-30 20:19] LABS: BASOPHILS # (AUTO) 0.09 x10^3/uL (0-0.1); BASOPHILS % (AUTO) 1 % (0-1); EOSINOPHILS % (AUTO) 1 % (1-7); LYMPHOCYTES # (AUTO) 2.88 x10^3/uL (1-3.4); LYMPHOCYTES % (AUTO) 31 % (22-44); MD NO; MEAN CORPUSCULAR HEMOGLOBIN 32.4 pg (27.5-34.5); MEAN CORPUSCULAR HGB CONC 33.5 g/dL (33.2-36.2); MEAN CORPUSCULAR VOLUME 96.7 fL (81-97); MEAN PLATELET VOLUME 6.3 fL (7.4-10.4); MONOCYTES # (AUTO) 0.52 x10^3/uL (0.2-0.8); MONOCYTES % (AUTO) 6 % (2-9); NEUTROPHILS # (AUTO) 5.66 x10^3/uL (1.8-6.8); NEUTROPHILS % (AUTO) 61 % (42-75); PLATELET COUNT 411 x10^3/uL (130-400); RED BLOOD COUNT 4.32 x10^6/uL (4.38-5.82); RED CELL DISTRIBUTION WIDTH 16.6 % (9.4-14.8)
[2020-01-30 20:27] LABS: ANION GAP 11 mmol/L (5-15); CALCIUM 7.8 mg/dL (8.5-10.1); CHLORIDE 102 mmol/L (98-107); CREATININE 0.56 mg/dL (0.7-1.3)
[2020-01-30 21:47] VITALS: BP 114/74
--- NOTE | 2020-01-30 22:27 | NUR ---
PT AMBULATORY, AOX4. INFORMED .
== END 2020-01-30 22:36 | disposition home or self-care (01) ==
LOC: ED 22:00
DX: F10.221 Alcohol dependence with intoxication delirium (principal); G92 Toxic encephalopathy; Y90.9 Presence of alcohol in blood, level not specified
CPT/HCPCS: 36415; 80048; 80307; 83735; 85025; 99283

== ENCOUNTER 2020-02-19 10:00 | Emergency (ER) | payer MEDICAID ==
[~2020-02-19] VITALS: Ht 200.7 cm; Wt 75.0 kg
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
[2020-02-19] MEDS ORDERED: THIAMINE 100MG TABLET ONE (10:48)
[2020-02-19] MEDS ORDERED: THIAMINE 100MG TABLET PO ONE (11:00)
--- NOTE | 2020-02-19 11:00 | NUR ---
PT MEDICATED PER MAR, MEAL TRAY ORDERED
[2020-02-19 12:48] VITALS: BP 102/54
--- NOTE | 2020-02-19 13:09 | NUR ---
LUNCH RN: PT RESTING IN BED, NOT WAKING UP BUT HAS UNLABORE RESPIRATIONS AND GOOD CAP REFILL. PT WILL BE EVALUATED AGAIN FOR SAFE DC. PT APPEARS TO HAVE COMPLETED MEAL.
--- NOTE | 2020-02-19 15:55 | NUR ---
PT NOW DEMONSTRATING STEADY GAIT. PROCEED WITH DC
== END 2020-02-19 15:57 | disposition home or self-care (01) ==
LOC: ED 11:19
DX: F10.129 Alcohol abuse with intoxication, unspecified (principal); F17.200 Nicotine dependence, unspecified, uncomplicated; Y90.9 Presence of alcohol in blood, level not specified
CPT/HCPCS: 82962; 99283

== ENCOUNTER 2020-04-20 17:09 | Emergency (ER) | payer MEDICAID ==
[~2020-04-20] VITALS: Ht 200.7 cm; Wt 77.0 kg
--- NOTE | 2020-04-20 17:40 | NUR ---
PT BIB [facility], PT FOUND DOWNTOWN UNABLE TO AMBULATE STEADY. PT WITH NEW ABRASION TO RT ELBOW. PT IS A&OX3, ABLE TO ANSWER SOME QUESTIONS. PT IS LETHARGIC, ADMITS TO DAILY HEAVY ETOH USE. PT PLACED ON MONITORS, EKG DONE BY TECH. AWAITING ERMD ASSESSMENT.
--- NOTE | 2020-04-20 18:13 | NUR ---
PT TO IMAGING.
--- NOTE | 2020-04-20 18:52 | NUR ---
PT SLEEPING IN BED, NO DISTRESS, VSS. REPORT GIVEN TO FLEX CONTRERAS.
--- NOTE | 2020-04-20 18:56 | NUR ---
REPORT FROM DIANE SCHMIDT. PT CARE RESPONSIBILITIES ASSUMED.
--- NOTE | 2020-04-20 20:29 | NUR ---
PT PROVIDED WITH SNACKS AND DRINKS. ENCOURAGED TO EAT DRINK AND WAKE UP FOR DISCHARGE. DENIES ANY NEEDS AT THIS TIME, CALL LIGHT IN REACH.
[2020-04-20 21:57] VITALS: BP 114/67
== END 2020-04-20 21:58 | disposition home or self-care (01) ==
LOC: ED 19:35
DX: S80.01XA Contusion of right knee, initial encounter (principal); S50.311A Abrasion of right elbow, initial encounter; R00.0 Tachycardia, unspecified; F17.200 Nicotine dependence, unspecified, uncomplicated; W18.30XA Fall on same level, unspecified, initial encounter; Y93.89 Activity, other specified; Y92.410 Unspecified street and highway as the place of occurrence of the external cause; Y99.8 Other external cause status
CPT/HCPCS: 93005; 99283

== ENCOUNTER 2020-04-21 09:53 | Emergency (ER) | payer MEDICAID ==
[~2020-04-21] VITALS: Ht 200.7 cm; Wt 72.7 kg
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
--- NOTE | 2020-04-21 10:27 | NUR ---
PT SLEEPING IN [facility], AWAKENS TO VOICE. EKG DONE AND CXR DONE AT BS.
--- NOTE | 2020-04-21 11:32 | NUR ---
PT STILL SLEEPING IN [facility], AWAKENS TO VOICE, NO SIGNS OF DISTRESS.
[2020-04-21 12:20] VITALS: BP 105/60
--- NOTE | 2020-04-21 12:29 | NUR ---
PT URINATED ON SHEETS IN [facility]. SAT UP AND STATED HE WANTS TO LEAVE. ER PA NOTIFIED. PT AMBULATED OUT OF ED WITH STEADY GAIT.
== END 2020-04-21 12:30 | disposition home or self-care (01) ==
LOC: ED 10:29
DX: F10.129 Alcohol abuse with intoxication, unspecified (principal); R07.9 Chest pain, unspecified; R94.31 Abnormal electrocardiogram [ECG] [EKG]; F17.210 Nicotine dependence, cigarettes, uncomplicated; Y90.9 Presence of alcohol in blood, level not specified
CPT/HCPCS: 71045; 93005; 99283; 99406